=== PATIENT | female | born 1950 | race Caucasian/White ===

== ENCOUNTER 2017-03-14 09:57 | Emergency (ER) | payer OTHER, MEDICAID ==
[~2017-03-14] VITALS: Ht 162.6 cm; Wt 74.0 kg
[~2017-03-14 09:57] MED LIST: ACET500C5 PO; AMLO-147 PO; AZIT500T5 PO; BACL10TA PO; CAPT25TA3 PO; NAPR-260 PO; NAPR-688 PO; UDROBDM PO
[2017-03-14 10:08] VITALS: Ht 162.6 cm; Wt 74.0 kg
[2017-03-14] MEDS ORDERED: DICLOFENAC SODIUM 37.5 MG/ML VIAL IV STA (10:43)
[2017-03-14] MEDS ORDERED: ONDANSETRON 4 MG INJ IV STA (10:43)
--- NOTE | 2017-03-14 10:47 | ERD ---
ER Documentation Chief Complaint Date/Time DATE: 03/14/17 TIME: 10:45 Chief Complaint NAUSEA, VOMITING, DIARRHEA STARTING THIS MORNING AT 0400 HPI 66-year-old female complaining of nausea, vomiting, and diarrhea since 4 AM this morning. She had 2 episodes of vomiting and 2 episodes diarrhea. The vomit is nonbloody and nonbilious. The diarrhea is not bloody. Patient reports diffuse abdominal pain. Pain is constant and sharp. Denies fever, but reports chills. Denies shortness of breath. Denies cough or runny nose. Patient has history of hypertension, but denies any other medical history. Denies surgical history ROS All systems reviewed and are negative except as per history of present illness. Medications Home Meds Active Scripts Ondansetron (Ondansetron Odt) 4 Mg Tab.rapdis, 4 MG PO Q6H Y for NAUSEA AND/OR VOMITING, #10 TAB Prov:CHEMO ENNIS. MECHANICAL CAD DRAFTER 03/14/17 Baclofen* (Baclofen*) 10 Mg Tablet, 10 MG PO TID Y for muscle spasms for 7 Days , TAB Prov:TERRI DE LA CRUZ P MECHANICAL CAD DRAFTER 06/13/16 Naproxen* (Naprosyn*) 500 Mg Tablet, 500 MG PO BID Y for PAIN AND/OR INFLAMMATION, #30 TAB Prov:TERRI DE LA CRUZ MECHANICAL CAD DRAFTER 06/13/16 Guaifenesin-Dextromethorphan* (Robitussin* DM) 100MG/10MG/5ML Syrup, 10 ML PO Q6H Y for COUGH for 7 Days, ML Prov:KRISHNA BERRY DO 01/23/16 Acetaminophen* (Tylophen*) 500 Mg Capsule, 1 CAP PO Q6H Y for PAIN AND OR ELEVATED TEMP, #20 CAP Prov:KRISHNA BERRY DO 01/23/16 Azithromycin* (Azithromycin*) 500 Mg Tablet, 500 MG PO DAILY, #3 TAB Prov:CIPRIANO POTTER DO 01/22/16 Amlodipine Besylate* (Amlodipine Besylate*) 10 Mg Tablet, 10 MG PO DAILY, #30 TAB Prov:CIPRIANO POTTER DO 01/22/16 Naproxen* (Naproxen*) 500 Mg Tablet, 500 MG PO BID Y for PAIN, #20 TAB Prov:CIPRIANO POTTER DO 01/22/16 Captopril* (Captopril*) 25 Mg Tablet, 25 MG PO BID for 10 Days, TAB Prov:PANKAJ MACEDO MD 07/29/15 Allergies Allergies: Coded Allergies: No Known Allergy (Unverified , 01/21/16) PMhx/Soc History of Surgery: No Anesthesia Reaction: No Hx Neurological Disorder: No Hx Respiratory Disorders: No Hx Cardiac Disorders: Yes (HTN) Hx Psychiatric Problems: No Hx Miscellaneous Medical Probl: No Hx Alcohol Use: No Hx Substance Use: No Hx Tobacco Use: No Physical Exam Vitals Vital Signs Date Time Temp Pulse Resp B/P Pulse Ox O2 Delivery O2 Flow Rate FiO2 03/14/17 10:08 98.6 98 16 177/99 96 Physical Exam General impression: Well-developed, well-nourished. Alert, oriented, in no acute distress Head: Normocephalic, atraumatic. Eyes: PERRL, EOM normal. Sclerae are normal. Conjunctiva not injected. Neck: Supple, nontender. No lymphadenopathy. No nuchal rigidity. Respiration: Normal respiratory effort. Lungs clear to auscultate bilaterally. No wheezes, rales or rhonchi. Cardiovascular: Regular rate and rhythm. No murmurs or extra heart sounds. Abdomen: Abdomen normal to inspection. Diffusely tender, no rebound or guarding. No masses or organomegaly. Bowel sounds normal. Back: Normal to inspection. No midline spine tenderness. No CVA tenderness. Extremities: Extremities normal to inspection, nontender. ROM normal. Neuro: Mental status normal, speech normal. CHIPPER FEEDER grossly intact. Skin: Normal turgor. No rash or lesions. Psych: Normal mood and affect. Result Diagram: 03/14/17 1058 03/14/17 1058 Results 24 hrs Laboratory Tests Test 03/14/17 10:58 03/14/17 11:09 White Blood Count 12.410^3/ul Red Blood Count 4.5510^6/ul Hemoglobin 13.3g/dl Hematocrit 40.9% Mean Corpuscular Volume 89.9fl Mean Corpuscular Hemoglobin 29.2pg Mean Corpuscular Hemoglobin Concent 32.5g/dl Red Cell Distribution Width 13.1% Platelet Count 35899^3/UL Mean Platelet Volume 13.7fl Neutrophils % 90.5% Lymphocytes % 4.7% Monocytes % 3.6% Eosinophils % 0.5% Basophils % 0.2% Nucleated Red Blood Cells % 0.0/100WBC Neutrophils # 11.210^3/ul Lymphocytes # 0.610^3/ul Monocytes # 0.410^3/ul Eosinophils # 0.110^3/ul Basophils # 0.010^3/ul Nucleated Red Blood Cells # 0.010^3/ul Sodium Level 139mmol/L Potassium Level 4.2mmol/L Chloride Level 104mmol/L Carbon Dioxide Level 29mmol/L Anion Gap 10 Blood Urea Nitrogen 17mg/dl Creatinine 0.81mg/dl Glucose Level 127mg/dl Calcium Level 9.3mg/dl Total Bilirubin 0.5mg/dl Direct Bilirubin 0.00mg/dl Indirect Bilirubin 0.5mg/dl Aspartate Amino Transf (AST/SGOT) 24IU/L Alanine Aminotransferase (ALT/SGPT) 27IU/L Alkaline Phosphatase 113IU/L Total Protein 7.9g/dl Albumin 4.6g/dl Globulin 3.30g/dl Albumin/Globulin Ratio 1.39 Lipase 63U/L Urine Color YELLOW Urine Clarity CLEAR Urine pH 6.0 Urine Specific [place] 1.020 Urine Ketones NEGATIVE Urine Nitrite NEGATIVE Urine Bilirubin NEGATIVE Urine Urobilinogen 0.2 E.U./dL Urine Leukocyte Esterase NEGATIVE Urine Microscopic RBC 5-10/HPF Urine Microscopic WBC 0-2/HPF Urine Epithelial Cells OCCASIONAL Urine Hemoglobin 1+ Urine Glucose NEGATIVE% Urine Total Protein 1+ Current Medications Medications (Trade) Dose Ordered Sig/Greer Route PRN Reason Start Time Stop Time Status Last Admin Dose Admin Ondansetron HCl (Zofran Inj) 4 mg ONCE STAT IV 03/14/17 10:43 03/14/17 10:44 DC 03/14/17 10:59 Diclofenac Sodium (Dyloject) 37.5 mg ONCE STAT IV 03/14/17 10:43 03/14/17 10:44 DC 03/14/17 10:59 Procedures/MDM 65-year-old female presented ED with nausea vomiting and diarrhea since this morning. CBC, CMP, lipase, and UA were obtained. Mild leukocytosis is noted on CBC with WBC 12.4. Labs are otherwise unremarkable. Patient was given Zofran in the ED for nausea. Patient did not have any episodes of vomiting in the ED. Patient is afebrile, does not have any abdominal tenderness on palpation. I doubt acute appendicitis, cholecystitis or other acute abdomen. Patient's symptoms is consistent with that of viral gastroenteritis. Patient does not have any active vomiting, is able to maintain by mouth fluid intake. Patient appears well, stable for discharge and outpatient management. Medical decision making shared with patient and family. Education provided to patient and family. Patient and family expressed understanding of the plan. Medications on discharge: Zofran. Follow-up: Primary care provider in 2-3 days or return to ED if worse. The case was reviewed and discussed with Dr. Quinn, who agrees with the plan of care including labs, treatment, and advanced imaging as appropriate. Departure Diagnosis: Primary Impression: Nausea and vomiting Vomiting type: unspecified Vomiting Intractability: non-intractable Qualified Code: R11.2 - Non-intractable vomiting with nausea, unspecified vomiting type Condition: CHEMO Munoz NP Mar 14, 2017 10:47
[2017-03-14 11:31] LABS: ADD SCAN DIFF NO
[2017-03-14 11:37] LABS: ABNORMAL IP MESSAGE 1; BASOPHILS % 0.2 % (0.0-2.0); EOSINOPHILS # 0.1 10^3/ul (0.0-0.5); EOSINOPHILS % 0.5 % (0.0-7.0); HEMATOCRIT 40.9 % (37.0-47.0); HEMOGLOBIN 13.3 g/dl (12.0-16.0); LYMPHOCYTES # 0.6 10^3/ul (0.8-2.9); LYMPHOCYTES % 4.7 % (15.0-51.0); MEAN CORPUSCULAR HEMOGLOBIN 29.2 pg (29.0-33.0); MEAN CORPUSCULAR HGB CONC 32.5 g/dl (32.0-37.0); MEAN CORPUSCULAR VOLUME 89.9 fl (82.0-101.0); MEAN PLATELET VOLUME 13.7 fl (7.4-10.4); MONOCYTE # 0.4 10^3/ul (0.3-0.9); MONOCYTES % 3.6 % (0.0-11.0); NEUTROPHIL # 11.2 10^3/ul (1.6-7.5); NEUTROPHILS % 90.5 % (39.0-77.0); PLATELET COUNT 130 10^3/UL (140-415); RED BLOOD COUNT 4.55 10^6/ul (4.20-5.40); RED CELL DISTRIBUTION WIDTH 13.1 % (11.5-14.5); WHITE BLOOD COUNT 12.4 10^3/ul (4.8-10.8)
[2017-03-14 11:39] LABS: ADD UMIC YES; URINE BILIRUBIN (Dip) NEGATIVE (NEGATIVE); URINE BLOOD (Dip) 1+ (NEGATIVE); URINE COLOR YELLOW (YELLOW); URINE GLUCOSE (Dip) NEGATIVE (NEGATIVE); URINE KETONES (Dip) NEGATIVE (NEGATIVE); URINE LEUKOCYTE ESTERASE (Dip) NEGATIVE (NEGATIVE); URINE NITRITE (Dip) NEGATIVE (NEGATIVE); URINE TOTAL PROTEIN (Dip) 1+ (NEGATIVE); URINE UROBILINOGEN (Dip) 0.2 E.U./dL (0.1-1.0)
[2017-03-14 11:52] LABS: ALBUMIN 4.6 g/dl (3.3-4.9); ALBUMIN/GLOBULIN RATIO 1.39; BILIRUBIN,INDIRECT 0.5 mg/dl (0-1.1); BILIRUBIN,TOTAL 0.5 mg/dl (0.2-1.3); CALCIUM 9.3 mg/dl (8.4-10.2); CREATININE 0.81 mg/dl (0.44-1.00); POTASSIUM 4.2 mmol/L (3.5-5.1); TOTAL PROTEIN 7.9 g/dl (6.1-8.1)
[2017-03-14] MEDS ORDERED: ONDA4TAB14 PO (12:59)
== END 2017-03-14 14:17 | disposition home or self-care (01) ==
LOC: FTE 09:57
DX: R11.2 Nausea with vomiting, unspecified (principal); I10 Essential (primary) hypertension
CPT/HCPCS: 36415; 80053; 81001; 83690; 85025; 96374; 96375; 99284; J2405; 81003

== ENCOUNTER 2018-10-10 10:36 | Emergency (ER) | END 2018-10-10 11:39 | disposition home or self-care (01) ==

== ENCOUNTER 2019-06-08 04:33 | Emergency (ER) | payer OTHER, MEDICAID ==
[~2019-06-08] VITALS: Ht 157.5 cm; Wt 76.2 kg
[~2019-06-08 04:33] MED LIST changes: +CEPH-443 PO; +GUAI5SYR2 PO; -NAPR-260 PO; +NAPR-985 PO; +ONDA4TAB14 PO; -UDROBDM PO
[2019-06-08 04:37] VITALS: Ht 157.5 cm; Wt 76.2 kg
[2019-06-08] MEDS ORDERED: IBUP-1542 PO (05:17)
[2019-06-08] MEDS ORDERED: AMOX500C2 PO (05:17)
[2019-06-08] MEDS ORDERED: CAPT25TA3 PO (05:17)
--- NOTE | 2019-06-08 05:21 | ERD ---
ER Documentation Chief Complaint Chief Complaint right earache x 1 week HPI 68-year-old female presents to the emergency department complaining of right ear pain intermittently for the past 1 week. Symptoms have worsened. Symptoms are moderate to severe. She tried [id number] medication with some relief. Lisa brantley is also requesting refill of her blood pressure medication, captopril, 25 mg daily. She denies any headache, fevers, chills, or other symptoms at this time. ROS All systems reviewed and are negative except as per history of present illness. Medications Home Meds Active Scripts Ibuprofen* (Motrin*) 600 Mg Tab, 600 MG PO Q6, #30 TAB Prov:VARGHESE CENTENO PA-C 06/08/19 Amoxicillin* (Amoxicillin*) 500 Mg Cap, 500 MG PO TID for 10 Days, CAP Prov:VARGHESE CENTENO PA-C 06/08/19 Captopril* (Captopril*) 25 Mg Tablet, 25 MG PO DAILY, #30 TAB Prov:VARGHESE CENTENO PA-C 06/08/19 Acetaminophen* (Tylophen*) 500 Mg Capsule, 1 CAP PO Q6H PRN for PAIN AND OR ELEVATED TEMP, #20 CAP Prov:ZACK MCCABEC 10/10/18 Cephalexin* (Keflex*) 500 Mg Capsule, 500 MG PO QID for 7 Days, CAP Prov:ZACK MCCABEC 10/10/18 Ondansetron (Ondansetron Odt) 4 Mg Tab.rapdis, 4 MG PO Q6H PRN for NAUSEA AND/OR VOMITING, #10 TAB Prov:CHEMO ENNIS CLOTH BALER 03/14/17 Baclofen* (Baclofen*) 10 Mg Tablet, 10 MG PO TID PRN for muscle spasms for 7 Days, TAB Prov:MANAGUELOD,TERRI P CLOTH BALER 06/13/16 Naproxen* (Naprosyn*) 500 Mg Tablet, 500 MG PO BID PRN for PAIN AND/OR INFLAMMATION, #30 TAB Prov:MANAGUELOD,TERRI P CLOTH BALER 06/13/16 Guaifenesin-Dextromethorphan* (Robitussin* DM) 100MG/10MG/5ML Syrup, 10 ML PO Q6H PRN for COUGH for 7 Days, ML Prov:KRISHNA BERRY DO 01/23/16 Acetaminophen* (Tylophen*) 500 Mg Capsule, 1 CAP PO Q6H PRN for PAIN AND OR ELEVATED TEMP, #20 CAP Prov:KRISHNA BERRY DO 01/23/16 Azithromycin* (Azithromycin*) 500 Mg Tablet, 500 MG PO DAILY, #3 TAB Prov:CIPRIANO POTTER DO 01/22/16 Amlodipine Besylate* (Amlodipine Besylate*) 10 Mg Tablet, 10 MG PO DAILY, #30 TAB Prov:CIPRIANO POTTER DO 01/22/16 Naproxen* (Naproxen*) 500 Mg Tablet, 500 MG PO BID PRN for PAIN, #20 TAB Prov:CIPRIANO POTTER DO 01/22/16 Captopril* (Captopril*) 25 Mg Tablet, 25 MG PO BID for 10 Days, TAB Prov:PANKAJ MACEDO MD 07/29/15 Allergies Allergies: Coded Allergies: No Known Allergy (Unverified , 01/21/16) PMhx/Soc History of Surgery: Yes (hysterectomy 1984) Anesthesia Reaction: No Hx Neurological Disorder: No Hx Respiratory Disorders: No Hx Cardiac Disorders: Yes (HTN) Hx Psychiatric Problems: No Hx Miscellaneous Medical Probl: No Hx Alcohol Use: No Hx Substance Use: No Hx Tobacco Use: No Smoking Status: Never smoker FmHx Family History: No diabetes Physical Exam Vitals Vital Signs Date Temp Pulse Resp B/P (MAP) Pulse Ox O2 O2 Flow FiO2 Time Delivery Rate 06/08/19 97.2 72 18 178/88 98 04:37 (118) Physical Exam Const: No acute distress Head: Atraumatic Eyes: Normal Conjunctiva ENT: Normal External Ears, Nose and Mouth. Mild erythema noted to the right tympanic membrane. Unable to fully visualize the right TM secondary to cerumen. Neck: Full range of motion. No meningismus. Resp: Clear to auscultation bilaterally Cardio: Regular rate and rhythm, no murmurs Skin: No petechiae or rashes Back: No midline or flank tenderness Ext: No cyanosis, or edema Neur: Awake and alert Psych: Normal Mood and Affect Procedures/MDM 68-year-old female presents to the emergency department with signs and symptoms most consistent with right-sided otitis media. Patient also requesting refill of her pressure medication. She will be given refill exactly as prescribed by her primary care for 1 month. No evidence of hypertensive emergency or urgency. Patient denies headache. No neurological deficits noted. Patient safe for discharge with prescription for amoxicillin to treat ear infection. patient's blood pressure was elevated (>120/80) but appears stable without evidence of hypertension emergency or urgency. The patient is to follow-up and pursue outpatient monitoring and therapy with their primary care physician within 1 week and return immediately if they have any new, worsening, or concerning symptoms. Departure Diagnosis: Primary Impression: Right ear pain Additional Impression: Encounter for medication refill Condition: Fair Patient Instructions: Taking Medicine Safely, Otitis Media, Abx Tx (Adult) [facility] Usted se caceres hecho un examen mdico de control que le indica que no est en jorge alberto condicin que requiera tratamiento urgente en el Departamento de Emergencia. Un estudio ms profundo y el tratamiento de duggan condicin pueden esperar sin ningn riesgo hasta que usted sea atendida/o en el consultorio de duggan mdico o jorge alberto clnica. Es responsabilidad suya arreglar jorge alberto tye para el seguimiento del pamela. MANEJO DE CONDICIONES NO URGENTES EN EL FUTURO 1) Si usted tiene un mdico de atencin primaria: Usted debera llamar a duggan mdico de atencin primaria antes de venir al departamento de emergencia. Despus de las horas de consultorio, duggan doctor o duggan asociado/a est disponible por telfono. El mdico o enfermero de linus en el servicio telefnico puede asesorarle por hellen medio para atender el problema, o pamela contrario se puede programar jorge alberto tye. 2) Si usted no tiene un mdico de atencin primaria: Llame al mdico o clnica de referencia que aparece abajo tahir las horas de consultorio para hacer jorge alberto tye para que le vean. CLINICAS: [facility] [phone] [facility] [place] [id number] [phone] [facility]. [facility] [phone] [place] [id number] [phone] [place] [id number] [phone] [facility]. [phone] [address] Additional Instructions: Llame al doctor MAANA y gerardo jorge alberto TYE PARA DENTRO DE 1-2 RIVAS.Dgale a la secretaria que nosotros le instruimos hacer esta tye.Avise o llame si duggan condicin se empeora antes de la tye. Regresa aqui si peor o no mejor. VARGHESE CENTENO PA-C Jun 08, 2019 05:21
[2019-06-08 05:35] VITALS: BP 186/98; PULSE 65; RESP 18
== END 2019-06-08 05:35 | disposition home or self-care (01) ==
LOC: FTE 04:33
DX: H92.01 Otalgia, right ear (principal); I10 Essential (primary) hypertension; Z76.0 Encounter for issue of repeat prescription
CPT/HCPCS: 99283